=== PATIENT | female | born 1980 | race Two or more races ===

== ENCOUNTER 2019-09-01 08:10 | Emergency (ER) | payer OTHER ==
[2019-09-01 08:20] VITALS: BP 128/67; PULSE 70; TEMP 98.6; BMI 23.8
[2019-09-01] MEDS ORDERED: predniSONE 20 MG TABLET (UD) PO ONE (08:44)
--- NOTE | 2019-09-01 08:54 | PDOC ---
History of Present Illness - General Chief Complaint: Rash Stated Complaint: Allergic Reaction Time Seen by Provider: 09/01/19 08:21 History Source: Patient Exam Limitations: No Limitations - History of Present Illness Initial Comments: 09/01/19 08:45 39y F no known pmhx presents with hives. Patient states she went to sleep last night feeling fine this morning when she woke up she was feeling itchy and noticed hives primarily on her lower back abdominal wall and arms. She took a Benadryl with improvement of her itching. Patient denies any other symptoms including shortness of breath, chest pain, wheezing, lightheadedness, nausea, vomiting abdominal pain. No known allergies. Patient denies any new exposures including new medications, new foods new lotions new clothing new bedding. ros Constitutional - no reported Fever, Chills, HEENT: no reported vision changes, sore throat Respiratory: no reported cough, sob, hemoptysis Cardiac: no reported chest pain, palpitations, light headedness, leg swelling Abd/GI: no reported abd pain, nausea, vomiting, blood per rectum, melena, diarrhea : no reported dysuria, frequency, discharge Musculskelatal - no reported back pain, joint swelling skin - +ITCHY RASH no reported bruising, erythema neurological: no reported headache, numbness, focal weakness, tingling, ataxia, hematologic: no reported easy bruising, easy bleeding EXAM GENERAL: The patient is awake, alert, and fully oriented, Nontoxic - in no acute distress. HEAD: Normocephalic, atraumatic. EYES: extraocular movements intact, sclera anicteric, conjunctiva clear. ENT: Normal voice, Moist mucous membranes. AIRWAY PATENT NECK: Normal range of motion, supple LUNGS: Breath sounds equal, clear to auscultation bilaterally. No wheezes, no rhonchi, no rales. HEART: Regular rate and rhythm, normal S1 and S2 without murmur, rub or gallop. ABDOMEN: Soft, nontender, No guarding, no rebound. No CVA tenderness EXTREMITIES: Normal range of motion, no edema. NEUROLOGICAL: No facial assymetry, Normal speech, PSYCH: Normal mood, normal affect. SKIN: +URICARIA ON LOWER BACK, LOWER ABDOMEN, ARMS, Warm, Dry, normal turgor, URICARIA, UNCLERA TRIGGER NO SIGNS OF AIRWAY/GI INVOLVEMENT UNCLEAR TRIGGER WILL TREAT WITH BENADRYL AND PREDNISONE WILLL HAVE PT FU WITH pmd AND ALLEGY NEEDED Past History - Medical History Allergies/Adverse Reactions: Allergies Allergy/AdvReac Type Severity Reaction Status Date / Time Penicillins Allergy Unknown Verified 09/01/19 08:14 Home Medications: Ambulatory Orders predniSONE [Deltasone -] 40 mg PO DAILY #8 tablet 09/01/19 Seizures: Yes - Surgical History Abdominal Surgery: Yes - Psycho-Social/Smoking History Smoking History: Never smoked - Substance Abuse Hx (Audit-C & DAST Scrn) How often the patient has a drink containing alcohol: Never Score: In Men: 4 or > Positive; In Women: 3 or > Positive: 0 Screen Result (Pos requires Nsg. Audit-10AR): Negative In the last yr the pt used illegal drug/Rx for NonMed reason: No Score: Yes response is considered Positive: 0 Screen Result (Positive result requires Nsg. DAST-10): Negative *Physical Exam - Vital Signs Last Vital Signs Temp Pulse Resp BP Pulse Ox 98.6 F 70 16 128/67 99 09/01/19 08:18 09/01/19 08:18 09/01/19 08:18 09/01/19 08:18 09/01/19 08:18 Discharge - Discharge Information Problems reviewed: Yes Clinical Impression/Diagnosis: Urticaria Condition: Stable Disposition: HOME - Admission No - Additional Discharge Information Prescriptions: predniSONE [Deltasone -] 40 mg PO DAILY #8 tablet - Follow up/Referral Referrals: Cullen Posey MD [Non Staff, Medical] - - Patient Discharge Instructions Patient Printed Discharge Instructions: DI for Hives, DI for General Allergic Reactions Additional Instructions: Return to the emergency department immediately with ANY new, persistent or worsening symptoms including any difficulty swallowing, difficulty breathing, vomiting or any other concerns. Take Benadryl as needed for itching. Take the prednisone as prescribed. The cause of your allergic reaction is unclear please follow-up with your primary care doctor or an multiple drum sander helper to further evaluate. You MUST call and follow up with your doctor in 3-4 days for further evaluation of your symptoms. Results were discussed with you. Please make sure your doctor reviews the results of your emergency evaluation. Your Emergency Department visit is not complete without a follow up with your doctor. Print Language: SETSWANA - Post Discharge Activity Work/Back to School Note: Back to Work
[2019-09-01] MEDS ORDERED: predniSONE 20 MG TABLET (UD) ONE (09:05)
== END 2019-09-01 09:37 | disposition home or self-care (01) ==
LOC: JER 08:10
DX: L50.9 Urticaria, unspecified (principal)
CPT/HCPCS: 99283-25

== ENCOUNTER 2020-01-08 04:37 | Day surgery (SDC) | payer OTHER ==
[2020-01-05 10:51] VITALS: BMI 24.7
[2020-01-08] MEDS ORDERED: MIDAZOLAM HCL 2 MG/2 ML SINGLE DOSE VIAL ONE (20:03)
[2020-01-08 21:23] VITALS: BP 112/82; PULSE 66; TEMP 97.4
== END 2020-01-08 21:35 | disposition home or self-care (01) ==
LOC: JASU-SURG 04:37
PROVIDERS: ATTEND Urology
PROC: 0TF3XZZ Fragmentation in Right Kidney Pelvis, External Approach (ICD-10-PCS; principal; 2020-01-08 17:30)
DX: N20.0 Calculus of kidney (principal)
CPT/HCPCS: 84703

== ENCOUNTER 2020-04-03 09:19 | Emergency (ER) | payer OTHER ==
[2020-04-03 09:33] VITALS: BP 115/74; PULSE 66; TEMP 97.5; BMI 26.5
[2020-04-03 10:38] LABS: HCG,QUALITATIVE URINE Negative
[2020-04-03 10:47] LABS: EPI CELLS 20 /uL (0-25.1); HYALINE CASTS 0 /uL (0-3.1); URINE APPEARANCE CLEAR; URINE BACTERIA 476 /uL (0-1359); URINE BILIRUBIN NEGATIVE (NEGATIVE); URINE COLOR YELLOW; URINE GLUCOSE (UA) NEGATIVE (NEGATIVE); URINE KETONE NEGATIVE (NEGATIVE); URINE LEUK ESTERASE 1+ (NEGATIVE); URINE NITRITE NEGATIVE (NEGATIVE); URINE PROTEIN NEGATIVE (NEGATIVE); URINE RBC 4 /uL (0-23.9); URINE UROBILINOGEN 0.2 mg/dL (0.2-1.0); URINE WBC 34 /uL (0-25.8)
== END 2020-04-03 11:15 | disposition home or self-care (01) ==
LOC: JERFT 09:19
DX: N30.01 Acute cystitis with hematuria (principal)
CPT/HCPCS: 81003; 84703; 87086; 87186; 99284-25

== ENCOUNTER 2024-02-03 04:42 | Day surgery (SDC) | payer BC ==
[2024-01-31 11:50] VITALS: BMI 25.2
[2024-02-03 08:30] VITALS: TEMP 97.5
[2024-02-03 08:39] VITALS: RESP 16
[2024-02-03 09:02] VITALS: BP 110/73; PULSE 68
== END 2024-02-03 09:39 | disposition home or self-care (01) ==
LOC: JASU-ENDO 04:42
PROVIDERS: ATTEND Internal Medicine Gastroenterology
PROC: 0DB38ZX Excision of Lower Esophagus, Via Natural or Artificial Opening Endoscopic, Diagnostic (ICD-10-PCS; 2024-02-03)
PROC: 0DB68ZX Excision of Stomach, Via Natural or Artificial Opening Endoscopic, Diagnostic (ICD-10-PCS; 2024-02-03)
PROC: 0DB28ZX Excision of Middle Esophagus, Via Natural or Artificial Opening Endoscopic, Diagnostic (ICD-10-PCS; 2024-02-03)
PROC: 0DBL8ZX Excision of Transverse Colon, Via Natural or Artificial Opening Endoscopic, Diagnostic (ICD-10-PCS; principal; 2024-02-03 07:30)
DX: Z12.11 Encounter for screening for malignant neoplasm of colon (principal); D12.3 Benign neoplasm of transverse colon; Z80.0 Family history of malignant neoplasm of digestive organs; K29.50 Unspecified chronic gastritis without bleeding
CPT/HCPCS: 88305-TC; 88342-TC